=== PATIENT | female | born 1960 | race African-American/Black ===

== ENCOUNTER 2016-04-21 21:22 | Observation (INO) | payer MEDICAID ==
[~2016-04-21] VITALS: Ht 165.1 cm; Wt 84.2 kg
[~2016-04-21 21:22] MED LIST: ASPIRIN 32325 MG/TAB PO; ASPIRIN 81M81 MG/TA2 PO; NAPROSYN500 MG PO; NORCO 325 MG-51 TAB PO; PRINIVIL5 MG PO
[2016-04-21 21:51] LABS: BASO % 0.5 % (0.0-2.0); EOS # 0.1 (0.0-0.7); EOS % 1.3 % (0-4.0); GRAN % 59.8 % (42.2-75.2); HEMATOCRIT 37.6 % (37.0-47.0); LYMPH # 2.6 (1.2-3.4); LYMPH % 31.4 % (20.0-51.0); MEAN CELL VOLUME 71 fl (80.0-100.0); MEAN CORPUSCULAR HEMOGLOBIN 22 pg (27.0-31.0); MEAN CORPUSCULAR HGB CONC 31 g/dl (33.0-37.0); MEAN PLATELET VOLUME 11.3 fl (7.4-10.4); MONO # 0.6 (0.1-0.6); MONO % 6.8 % (1.7-9.3); PLATELET COUNT 214 K/mm3 (130-400); RED BLOOD COUNT 5.27 M/mm3 (4.10-5.30); REDCELL DISTRIBUTION WIDTH-CV 14.4 % (11.5-14.5); WHITE BLOOD COUNT 8.3 K/mm3 (4.8-10.8)
[2016-04-21 21:54] LABS: HEMOGLOBIN 11.6 g/dl (12.5-16.0)
[2016-04-21 22:02] LABS: ANION GAP 11 mmol/L (7-16); BLOOD UREA NITROGEN 11 mg/dL (7-17); CARBON DIOXIDE 30 mmol/L (22-30); CHLORIDE 100 mmol/L (98-107); CREATININE, serum 0.78 mg/dL (0.52-1.25); GLUCOSE 78 mg/dL (74-106); POTASSIUM 3.3 mmol/L (3.4-5.0); SODIUM 141 mmol/L (137-145)
[2016-04-21 22:14] LABS: TROPONIN-I < 0.012 ng/mL (0.000-0.034)
[2016-04-21 23:36] VITALS: O2SAT 88
[2016-04-21 23:52] VITALS: O2SAT 98; O2SAT 99
[2016-04-22] VITALS (659 sets, daily range): BP systolic 116–167; BP diastolic 70–107; PULSE 67–77; TEMP 97–97.8; O2SAT 90–100
[2016-04-22] MEDS ORDERED: ASPIRIN 81M81 MG/TA2 PO (00:56)
[2016-04-22 05:56] LABS: BASO # 0.1 (0.0-0.2); BASO % 0.7 % (0.0-2.0); EOS # 0.2 (0.0-0.7); EOS % 2.2 % (0-4.0); GRAN # 3.6 (1.4-6.5); GRAN % 52.4 % (42.2-75.2); LYMPH # 2.6 (1.2-3.4); LYMPH % 38.6 % (20.0-51.0); MEAN CELL VOLUME 71 fl (80.0-100.0); MEAN CORPUSCULAR HGB CONC 31 g/dl (33.0-37.0); MEAN PLATELET VOLUME 11.3 fl (7.4-10.4); MONO # 0.4 (0.1-0.6); PLATELET COUNT 216 K/mm3 (130-400); REDCELL DISTRIBUTION WIDTH-CV 14.4 % (11.5-14.5); WHITE BLOOD COUNT 6.8 K/mm3 (4.8-10.8)
[2016-04-22 06:00] LABS: HEMATOCRIT 36.4 % (37.0-47.0); HEMOGLOBIN 11.2 g/dl (12.5-16.0); MEAN CORPUSCULAR HEMOGLOBIN 22 pg (27.0-31.0)
[2016-04-22 06:26] LABS: ANION GAP 9 mmol/L (7-16); BLOOD UREA NITROGEN 11 mg/dL (7-17); CALCIUM 9.4 mg/dL (8.4-10.2); CARBON DIOXIDE 27 mmol/L (22-30); CHLORIDE 105 mmol/L (98-107); CREATININE, serum 0.72 mg/dL (0.52-1.25); GLUCOSE 96 mg/dL (74-106); MAGNESIUM 1.7 mg/dL (1.6-2.3); POTASSIUM 3.9 mmol/L (3.4-5.0); SODIUM 141 mmol/L (137-145)
[2016-04-22 06:34] LABS: TROPONIN-I < 0.012 ng/mL (0.000-0.034)
[2016-04-22] MEDS ORDERED: TAMBOCOR 1100 MG/TAB PO (12:49)
[2016-04-22] MEDS ORDERED: ELIQUIS 5MG PO (12:49)
[2016-04-22] MEDS ORDERED: CARDIZEM CD 12120 MG PO (12:50)
== END 2016-04-22 14:00 | disposition home or self-care (01) ==
LOC: COL.ER 21:22 → ICU 22:27
PROVIDERS: Emergency Medicine; Nurse Practitioner Family
DX: I48.91 Unspecified atrial fibrillation (principal); I10 Essential (primary) hypertension; R55 Syncope and collapse; E87.6 Hypokalemia; Z86.73 Personal history of transient ischemic attack (TIA), and cerebral infarction without residual deficits; Z87.820 Personal history of traumatic brain injury
CPT/HCPCS: 99222-AI; J1650; J7030; J7050

== ENCOUNTER 2017-01-29 17:25 | Emergency (ER) | payer MEDICAID ==
[~2017-01-29] VITALS: Ht 165.1 cm; Wt 85.9 kg
[~2017-01-29 17:25] MED LIST changes: +CARDIZEM CD 12120 MG PO; +ELIQUIS 5MG PO; +TAMBOCOR 1100 MG/TAB PO
[2017-01-29 17:37] VITALS: TEMP 98
[2017-01-29] MEDS ORDERED: FLEXERIL5 MG PO (19:12)
[2017-01-29] MEDS ORDERED: NORCO 325 MG-51 TAB PO (19:12)
[2017-01-29 19:19] VITALS: BP 122/70; PULSE 76
== END 2017-01-29 19:20 | disposition home or self-care (01) ==
LOC: COL.ER 17:25
DX: M25.551 Pain in right hip (principal); I10 Essential (primary) hypertension; Z79.82 Long term (current) use of aspirin; X50.1XXA Overexertion from prolonged static or awkward postures, initial encounter

== ENCOUNTER 2017-01-31 20:09 | Emergency (ER) | payer MEDICAID ==
[~2017-01-31] VITALS: Ht 167.6 cm; Wt 85.9 kg
[~2017-01-31 20:09] MED LIST changes: +FLEXERIL5 MG PO
[2017-01-31 20:12] VITALS: TEMP 98.3
[2017-01-31] MEDS ORDERED: CARDIZEM120 MG PO (20:24)
[2017-01-31] MEDS ORDERED: AMOXICILLIN 50500 MG PO (20:37)
[2017-01-31 21:20] VITALS: BP 160/87; PULSE 66
[2017-02-01] MEDS ORDERED: CLEOCIN HCL300 MG PO (22:42)
== END 2017-01-31 21:29 | disposition home or self-care (01) ==
LOC: COL.ER 20:09
DX: K08.89 Other specified disorders of teeth and supporting structures (principal); I10 Essential (primary) hypertension; R68.84 Jaw pain; Z86.73 Personal history of transient ischemic attack (TIA), and cerebral infarction without residual deficits

== ENCOUNTER 2017-08-31 01:00 | Emergency (ER) | payer MEDICAID ==
[~2017-08-31] VITALS: Ht 165.1 cm; Wt 89.5 kg
[~2017-08-31 01:00] MED LIST changes: +AMOXICILLIN 50500 MG PO; +CARDIZEM120 MG PO; +CLEOCIN HCL300 MG PO
[2017-08-31 01:15] VITALS: BP 132/70; TEMP 98
[2017-08-31 02:43] VITALS: PULSE 70
== END 2017-08-31 02:41 | disposition home or self-care (01) ==
LOC: COL.ER 01:00
DX: B77.9 Ascariasis, unspecified (principal); Z86.73 Personal history of transient ischemic attack (TIA), and cerebral infarction without residual deficits; Z79.82 Long term (current) use of aspirin

== ENCOUNTER 2017-09-22 15:01 | Emergency (ER) | payer MEDICAID ==
[~2017-09-22] VITALS: Ht 165.1 cm; Wt 86.4 kg
[2017-09-22 15:07] VITALS: BP 145/81; TEMP 98.3
[2017-09-22 15:54] VITALS: PULSE 70
== END 2017-09-22 15:58 | disposition home or self-care (01) ==
LOC: COL.ER 15:01
DX: S63.602A Unspecified sprain of left thumb, initial encounter (principal); Z86.73 Personal history of transient ischemic attack (TIA), and cerebral infarction without residual deficits; Z79.82 Long term (current) use of aspirin; W22.8XXA Striking against or struck by other objects, initial encounter

== ENCOUNTER 2021-08-22 20:47 | Emergency (ER) | payer OTHER ==
[~2021-08-22] VITALS: Ht 167.6 cm; Wt 90.0 kg
[2021-08-22 20:53] VITALS: TEMP 98.7
[2021-08-22] MEDS ORDERED: ELIQUIS 5MG PO (20:57)
[2021-08-22] MEDS ORDERED: FERROUS SU325 MG/TAB PO (20:58)
[2021-08-22] MEDS ORDERED: LIPITOR 40MG TA40 MG PO (20:58)
[2021-08-22] MEDS ORDERED: NORCO 325 MG-51 TAB PO (21:29)
[2021-08-22] MEDS ORDERED: LIDODERM 5% PATC1 EA TP (21:29)
[2021-08-22 21:39] VITALS: BP 141/88; PULSE 70
== END 2021-08-22 21:39 | disposition home or self-care (01) ==
LOC: COL.ER 20:47
DX: R07.89 Other chest pain (principal); Z90.12 Acquired absence of left breast and nipple; Z88.5 Allergy status to narcotic agent; Z85.3 Personal history of malignant neoplasm of breast

== ENCOUNTER 2021-11-23 14:57 | Emergency (ER) | payer MEDICAID ==
[~2021-11-23] VITALS: Ht 167.6 cm; Wt 90.0 kg
[~2021-11-23 14:57] MED LIST changes: +FERROUS SU325 MG/TAB PO; +LIDODERM 5% PATC1 EA TP; +LIPITOR 40MG TA40 MG PO
[2021-11-23 15:01] VITALS: BP 138/82; PULSE 81; TEMP 98.2
[2021-11-23] MEDS ORDERED: NORCO 325 MG-51 TAB PO (16:14)
== END 2021-11-23 16:18 | disposition home or self-care (01) ==
LOC: COL.ER 14:57
DX: S93.505A Unspecified sprain of left lesser toe(s), initial encounter (principal); Z88.5 Allergy status to narcotic agent; W22.8XXA Striking against or struck by other objects, initial encounter; Y93.01 Activity, walking, marching and hiking

== ENCOUNTER → 2022-04-06 | Outpatient (CLI) | payer OTHER | LOC: COL.RAD 10:55 | DX: Z02.71 Encounter for disability determination (principal); M17.11 Unilateral primary osteoarthritis, right knee; M76.9 Unspecified enthesopathy, lower limb, excluding foot; M19.072 Primary osteoarthritis, left ankle and foot ==

== ENCOUNTER → 2022-04-26 | Outpatient (CLI) | payer OTHER | LOC: COL.RAD 10:13 | DX: Z02.71 Encounter for disability determination (principal); M20.12 Hallux valgus (acquired), left foot; M21.612 Bunion of left foot ==